=== PATIENT | male | born 1960 | race Caucasian/White ===

== ENCOUNTER 2017-01-23 19:45 | Emergency (ER) | payer MEDICARE ==
[2017-01-23 20:05] LABS: ABSOLUTE BASOPHILS # (AUTO) 0.1 10^3/uL (0.0-0.2); ABSOLUTE EOSINOPHILS # (AUTO) 0.2 10^3/uL (0.0-0.6); ABSOLUTE LYMPHOCYTES (AUTO) 2.2 10^3/uL (0.5-4.7); ABSOLUTE MONOCYTES (AUTO) 0.6 10^3/uL (0.1-1.4); BASOPHILS % (AUTO) 1.4 % (0-2); HEMATOCRIT 36.4 % (37.9-51.0); HEMOGLOBIN 11.9 g/dL (13.5-17.0); HGB HCT DIFFERENCE -0.7; LYMPHOCYTES % (AUTO) 36.8 % (13-45); MEAN CORPUSCULAR HEMOGLOBIN 28.9 pg (27.0-33.4); MEAN CORPUSCULAR HGB CONC 32.6 g/dL (32.0-36.0); MEAN CORPUSCULAR VOLUME 89 fl (80-97); MONOCYTES % (AUTO) 9.4 % (3-13); RED BLOOD COUNT 4.11 10^6/uL (4.35-5.55); RED CELL DISTRIBUTION WIDTH 15.2 % (11.5-14.0); SEGMENTED NEUTROPHILS % (AUTO) 49.4 % (42-78); WHITE BLOOD COUNT 6.1 10^3/uL (4.0-10.5)
[2017-01-23] MEDS ORDERED: TRAMADOL HCL 50 MG TABLET PO ONE (20:09)
[2017-01-23] MEDS ORDERED: OXYCODONE-ACETAMINOPHEN 5-325 MG TABLET PO ONE (20:09)
[2017-01-23] MEDS ORDERED: LORAZEPAM 0.5 MG TABLET PO ONE (20:09)
--- NOTE | 2017-01-23 20:11 | ER Document Report ---
ED Cardiac - General Chief Complaint: Chest Pain Stated Complaint: CHEST PAIN Time Seen by Provider: 01/23/17 19:58 Notes: Patient is a 56-year-old male who comes emergency department for chief complaint of chest pain and body pain in his extremities. Patient states he has a history of chronic pain syndrome, he states he has been out of his tramadol and oxycodone for 3 days, he is trying to get into a new pain management clinic. Patient also has a history of CABG, had a heart cath within the past year, he states he has a follow-up with cardiology tomorrow in [place] for consultation and additional management. He states he thinks he is supposed to get another stent but is not sure. Past medical history of CHF, type 2 diabetes, anxiety (on lorazepam). He denies current chest pain, states he just has body pain. He states the first episode of chest pain this morning happened when he was lifting himself out of bed, he states it is worse with movement and feels like a stabbing in his upper chest. He denies shortness of breath, cough, fever, abdominal pain, nausea/vomiting. - Related Data Allergies/Adverse Reactions: No Known Allergies Allergy (Verified 12/28/13 04:34) Past Medical History - General Information source: Patient - Social History Smoking Status: Former Smoker Frequency of alcohol use: None Drug Abuse: None Lives with: Family Family History: Reviewed & Not Pertinent - Past Medical History Cardiac Medical History: Reports: Hx Congestive Heart Failure, Hx Heart Attack, Hx Hypertension Neurological Medical History: Reports: Hx Cerebrovascular Accident Endocrine Medical History: Reports: Hx Diabetes Mellitus Type 2 GI Medical History: Reports: Hx Ulcer Psychiatric Medical History: Reports: Hx Anxiety Past Surgical History: Reports: Hx Abdominal Surgery - Exploratory laparotomy for perforated ulcer., Hx Cardiac Catheterization, Hx Cardiac Surgery, Hx Coronary Artery Bypass Graft - 3 vessel CABG 1998, Hx Internal Defibrillator - Immunizations Hx Diphtheria, Pertussis, Tetanus Vaccination: Yes Review of Systems - Review of Systems Constitutional: No symptoms reported EENT: No symptoms reported Cardiovascular: See HPI Respiratory: No symptoms reported Gastrointestinal: No symptoms reported Genitourinary: No symptoms reported Male Genitourinary: No symptoms reported Musculoskeletal: See HPI Skin: No symptoms reported Hematologic/Lymphatic: No symptoms reported Neurological/Psychological: No symptoms reported Physical Exam - Vital signs Vitals: Resp 18 01/23/17 19:49 Interpretation: Normal - General General appearance: Appears well, Alert In distress: None - HEENT Head: Normocephalic, Atraumatic Eyes: Normal Pupils: PERRL - Respiratory Respiratory status: No respiratory distress. No: Respiratory distress, Labored Chest status: Tender - tender in left mid to upper chest extending to just under lateral clavicle. Mild. Reproduceable. Mild generalized tenderness over chest otherwise., Other - bypass scar on chest Breath sounds: Normal. No: Decreased air movement, Nonproductive cough, Wheezing Chest palpation: Normal - Cardiovascular Rhythm: Regular. No: Tachycardia Heart sounds: Normal auscultation, S1 appreciated, S2 appreciated Murmur: No - Abdominal Inspection: Normal Distension: No distension Bowel sounds: Normal Tenderness: Nontender Organomegaly: No organomegaly - Back Back: Normal, Nontender - Extremities General upper extremity: Normal inspection, Nontender, Normal color, Normal ROM , Normal temperature General lower extremity: Normal inspection, Nontender, Normal color, Normal ROM , Normal temperature, Normal weight bearing. No: Jose's sign - Neurological Neuro grossly intact: Yes Cognition: Normal Orientation: AAOx4 Scar Coma Scale Eye Opening: Spontaneous Scar Coma Scale Verbal: Oriented [place] Coma Scale Motor: Obeys Commands Scar Coma Scale Total: 15 Speech: Normal Motor strength normal: LUE, RUE, LLE, RLE Sensory: Normal - Psychological Associated symptoms: Normal affect, Normal mood - Skin Skin Temperature: Warm Skin Moisture: Dry Skin Color: Normal Course - Re-evaluation Re-evalutation: Patient is pointing up to his left upper lateral clavicle area as the source of his pain, he has tenderness over this area. Pain worse when lifting himself and moving around. Atypical. Patient given a dose of the meds he is usually taking at home in addition to the aspirin, after this symptoms completely resolved. Shows sinus rhythm,. Initial troponin negative. Workup is suggestive of dehydration with elevated BUN, low bicarbonate, and specific gravity, patient was given a small amount of fluid. Patient resting comfortably. Troponin cycled and negative. Patient states that he already has a follow-up appointment with [facility] cardiology in the morning, he states that he does not want to stay, he states that he wants a referral to pain management, to see his shoe dresser today, and he needs something for pain. He states he responds very well to tramadol but he ran out. Vision states that he is also thinking about going [facility], states he is planning on calling them in the morning and going there instead if he can work it out. He specifically does not want to be admitted to the hospital here. He wants to call a ride. He does not want the [facility] shoe dresser contacted, states he will see them later today if he cannot work out something with [facility] (he currently sees [facility], prefers [facility], has been seen by [facility] before per patient). Because of excellent followup, atypical pain, and negative cardiac workup, patient discharged with return precautions. - Vital Signs Vital signs: Temp Pulse Resp BP Pulse Ox 98 F 84 18 94/65 L 99 01/23/17 19:58 01/23/17 19:58 01/24/17 01:00 01/24/17 00:00 01/24/17 02:00 - Laboratory Result Diagrams: 01/23/17 19:51 01/23/17 19:51 Laboratory results interpreted by me: 01/23/17 01/23/17 01/23/17 19:51 19:51 23:25 RBC 4.11 L Hgb 11.9 L Hct 36.4 L RDW 15.2 H Plt Count 147 L Chloride 111 H Carbon Dioxide 17 L Creatinine 1.36 H Est GFR (Non-Af Amer) 54 L Glucose 147 H AST 16 L Creatine Kinase 51 L Ur Leukocyte Esterase TRACE H Discharge - Discharge Clinical Impression: Whole body pain Chest pain Qualifiers: Chest pain type: unspecified Qualified Code(s): R07.9 - Chest pain, unspecified Condition: Stable Disposition: HOME, SELF-CARE Additional Instructions: Your workup shows some dehydration but no heart abnormalities at this time. Please either go to your appointment today or follow up within the next 1-2 days with cardiology. See pain management referral for close followup. Return to the ED for any concerning or worsening symptoms. Prescriptions: Tramadol HCl [Ultram 50 mg Tablet] 50 mg PO Q6HP PRN #30 tab PRN Reason: Referrals: [facility] [Provider Group] - Follow up tomorrow
[2017-01-23 20:17] LABS: ALANINE AMINOTRANSFERASE 28 U/L (21-72); ALBUMIN 3.9 g/dL (3.5-5.0); ALKALINE PHOSPHATASE 110 U/L (38-126); ANION GAP 12 (5-19); ASPARTATE AMINO TRANSFERASE 16 U/L (17-59); BILIRUBIN,DIRECT 0.4 mg/dL (0.0-0.4); BILIRUBIN,TOTAL 0.5 mg/dL (0.2-1.3); BLOOD UREA NITROGEN 18 mg/dL (7-20); CALCIUM 9.4 mg/dL (8.4-10.2); CARBON DIOXIDE 17 mmol/L (22-30); CHLORIDE 111 mmol/L (98-107); CREATINE KINASE 51 U/L (55-170); CREATININE RESULT 1.36 mg/dL (0.52-1.25); GLUCOSE 147 mg/dL (75-110); POTASSIUM 4.4 mmol/L (3.6-5.0); SODIUM 139.8 mmol/L (137-145); TOTAL PROTEIN 7.3 g/dL (6.3-8.2)
[2017-01-23 20:21] LABS: PROTHROMBIN TIME 12.9 SEC (11.4-15.4)
[2017-01-23 20:29] LABS: CREATINE KINASE MB 1.44 ng/mL (<4.55)
[2017-01-23 20:30] LABS: TROPONIN I < 0.012 ng/mL
--- NOTE | 2017-01-23 20:31 | EKG REPORT ---
SEVERITY:- ABNORMAL ECG - ATRIAL-SENSED VENTRICULAR-PACED COMPLEXES : Confirmed by: Morris Fontana MD 23-Jan-2017 20:30:12
--- NOTE | 2017-01-23 20:54 | RADIOLOGY REPORT (SQ) ---
EXAM DESCRIPTION: CHEST SINGLE VIEW COMPLETED DATE/TIME: 01/23/2017 8:45 pm REASON FOR STUDY: CP COMPARISON: December 2013 EXAM PARAMETERS: NUMBER OF VIEWS: One view. TECHNIQUE: Single frontal radiographic view of the chest acquired. RADIATION DOSE: NA LIMITATIONS: None. FINDINGS: LUNGS AND PLEURA: No opacities, masses or pneumothorax. No pleural effusion. MEDIASTINUM AND HILAR STRUCTURES: No masses. Contour normal. HEART AND VASCULAR STRUCTURES: Cardiac silhouette is at the upper limits of normal in size. BONES: No acute findings. HARDWARE: Patient is status post median sternotomy. AC ID device is identified in position. OTHER: No other significant finding. IMPRESSION: NO ACUTE RADIOGRAPHIC FINDING IN THE CHEST. TECHNICAL DOCUMENTATION: JOB ID: [id number]
[2017-01-23] MEDS ORDERED: NORMAL SALINE 1000 ML 250 ML IV ONE (21:40)
[2017-01-23 23:52] LABS: APPEARANCE,URINE CLEAR; BILIRUBIN,URINE NEGATIVE (NEGATIVE); GLUCOSE, URINE NEGATIVE (NEGATIVE); KETONES,URINE NEGATIVE (NEGATIVE); LEUKOCYTE ESTERASE,URINE TRACE (NEGATIVE); NITRITE,URINE NEGATIVE (NEGATIVE); PROTEIN,URINE NEGATIVE (NEGATIVE); URINE SPECIFIC GRAVITY 1.027; UROBILINOGEN,URINE NEGATIVE mg/dL (<2.0)
[2017-01-24] MEDS ORDERED: HYDROCODONE/ACETAMINOPHEN 5-325 MG 6 TAB/DSPK PO PRN (01:42)
[2017-01-24 04:45] VITALS: BP 117/81
== END 2017-01-24 04:45 | disposition home or self-care (01) ==
LOC: ER 19:45
DX: R07.89 Other chest pain (principal); G89.4 Chronic pain syndrome; T40.4X6A Underdosing of other synthetic narcotics, initial encounter; Z91.14 Patient's other noncompliance with medication regimen; M79.609 Pain in unspecified limb; E11.9 Type 2 diabetes mellitus without complications; F41.9 Anxiety disorder, unspecified; Z95.1 Presence of aortocoronary bypass graft; I25.2 Old myocardial infarction; I10 Essential (primary) hypertension; Z87.891 Personal history of nicotine dependence; Z95.810 Presence of automatic (implantable) cardiac defibrillator; Z79.899 Other long term (current) drug therapy; Z86.73 Personal history of transient ischemic attack (TIA), and cerebral infarction without residual deficits
CPT/HCPCS: 93005; 99285; 36415; 82553; 82550; 85025; 85610; 80053; 81001; 84484; 71010; 93010; A9270 ×4; J7030

== ENCOUNTER 2017-02-12 19:29 | Emergency (ER) | payer MEDICARE ==
[2017-02-12] MEDS ORDERED: OXYCODONE-ACETAMINOPHEN 5-325 MG TABLET PO ONE (20:21)
--- NOTE | 2017-02-12 20:23 | ER Document Report ---
ED General - General Chief Complaint: Short of breath, swelling Stated Complaint: BODY SWELLING,SHORTNESS OF BREATH Time Seen by Provider: 02/12/17 20:12 Notes: Patient is a 56-year-old male that comes emergency department for chief complaint of shortness of breath especially when lying flat since yesterday. He states he feels like he has retained fluid. He does have a history of CHF, CABG, type 2 diabetes, anxiety, and chronic pain syndrome on Lyrica. He denies fever, cough, chest pain, current shortness of breath. TRAVEL OUTSIDE OF THE [place] IN LAST 30 DAYS: No - Related Data Allergies/Adverse Reactions: No Known Allergies Allergy (Verified 12/28/13 04:34) Past Medical History - General Information source: Patient - Social History Smoking Status: Never Smoker Frequency of alcohol use: None Drug Abuse: None Lives with: Family Family History: Reviewed & Not Pertinent - Past Medical History Cardiac Medical History: Reports: Hx Congestive Heart Failure, Hx Heart Attack, Hx Hypertension Neurological Medical History: Reports: Hx Cerebrovascular Accident Endocrine Medical History: Reports: Hx Diabetes Mellitus Type 2 Renal/ Medical History: Denies: Hx Peritoneal Dialysis GI Medical History: Reports: Hx Ulcer Psychiatric Medical History: Reports: Hx Anxiety Past Surgical History: Reports: Hx Abdominal Surgery - Exploratory laparotomy for perforated ulcer., Hx Cardiac Catheterization, Hx Cardiac Surgery, Hx Coronary Artery Bypass Graft - 3 vessel CABG 1998, Hx Internal Defibrillator - Immunizations Hx Diphtheria, Pertussis, Tetanus Vaccination: Yes Review of Systems - Review of Systems Constitutional: See HPI EENT: No symptoms reported Cardiovascular: See HPI Respiratory: See HPI Gastrointestinal: No symptoms reported Genitourinary: No symptoms reported Male Genitourinary: No symptoms reported Musculoskeletal: No symptoms reported Skin: No symptoms reported Hematologic/Lymphatic: No symptoms reported Neurological/Psychological: No symptoms reported Physical Exam - Vital signs Vitals: Temp Pulse Resp BP Pulse Ox 98.4 F 96 20 101/58 L 99 02/12/17 19:41 02/12/17 19:41 02/12/17 19:41 02/12/17 19:41 02/12/17 19:41 Interpretation: Normal - General General appearance: Appears well, Alert, Anxious In distress: None - HEENT Head: Normocephalic, Atraumatic Eyes: Normal Pupils: PERRL - Respiratory Respiratory status: No respiratory distress Chest status: Nontender Breath sounds: Normal Chest palpation: Normal - Cardiovascular Rhythm: Regular. No: Tachycardia Heart sounds: Normal auscultation, S1 appreciated, S2 appreciated Murmur: No - Abdominal Inspection: Normal Distension: No distension Bowel sounds: Normal Tenderness: Nontender. No: Tender, Guarding Organomegaly: No organomegaly - Back Back: Normal, Nontender. No: Tender, CVA tenderness - Extremities General upper extremity: Normal inspection, Nontender, Normal strength, Normal temperature General lower extremity: Normal inspection, Nontender, Normal strength, Normal temperature. 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 He continued to discuss this for a few minutes. He did eventually also tells me that he thinks he is retaining fluid. He is on torsemide. Blood pressure drops slightly low when patient sleeps, improved after awakening. Ambulates without difficulty or symptoms on evaluation. EKG showing atrial paced rhythm. Chest x-ray unremarkable and shows no vascular congestion. Lungs clear on auscultation with no rales. Patient has no lower extremity edema or abdominal fluid. BNP is 4000, however I do not have a comparison, I obtained this to get a baseline for patient in the future. Nonspecific given patient's history. Examination does not show evidence of pulmonary vascular congestion. Discussed this with patient, he is smiling and appreciative, he states that he is very glad to hear this. Patient also states that he would like something for pain in addition to what he is taking, patient will be provided with tramadol, patient states that he has a referral to [facility] from previously and has an appointment next week. He states he will follow-up with this. He states he will return for chest pain, return or worsening shortness of breath, or any other concerning symptoms. Very low suspicion of ACS or PE. Patient asymptomatic at discharge. - Vital Signs Vital signs: Temp Pulse Resp BP Pulse Ox 97.9 F 86 20 101/57 L 99 02/13/17 00:18 02/13/17 00:18 02/13/17 00:18 02/13/17 00:18 02/13/17 00:18 - Laboratory Result Diagrams: 02/12/17 21:40 02/12/17 21:40 Laboratory results interpreted by me: 02/12/17 02/12/17 02/12/17 21:40 21:40 21:40 RBC 3.18 L Hgb 9.6 L Hct 28.2 L RDW 16.0 H Plt Count 131 L Chloride 111 H Glucose 127 H Calcium 8.3 L AST 14 L NT-Pro-B Natriuret Pep 4180 H Total Protein 6.2 L Albumin 3.1 L Discharge - Discharge Clinical Impression: Shortness of breath Condition: Stable Disposition: HOME, SELF-CARE Additional Instructions: Your workup does not show vascular congestion or any concerning acute abnormalities. Take the tramadol along with your current medications if needed for pain, follow -up with your provider for additional management. Return to emergency department for any concerning or worsening symptoms including difficulty breathing, fever, chest pain, or any other concerning symptoms. Prescriptions: Tramadol HCl 50 mg PO ASDIR PRN #20 tablet PRN Reason:
--- NOTE | 2017-02-12 21:12 | RADIOLOGY REPORT (SQ) ---
EXAM DESCRIPTION: CHEST SINGLE VIEW COMPLETED DATE/TIME: 02/12/2017 8:35 pm REASON FOR STUDY: shortness of breath COMPARISON: 01/23/2017 EXAM PARAMETERS: NUMBER OF VIEWS: One view. TECHNIQUE: Single frontal radiographic view of the chest acquired. RADIATION DOSE: NA LIMITATIONS: None. FINDINGS: LUNGS AND PLEURA: No opacities, masses or pneumothorax. No pleural effusion. MEDIASTINUM AND HILAR STRUCTURES: No masses. Contour normal. HEART AND VASCULAR STRUCTURES: Heart normal in size. Normal vasculature. BONES: No acute findings. HARDWARE: Cardiac hardware unchanged. OTHER: No other significant finding. IMPRESSION: NO ACUTE RADIOGRAPHIC FINDING IN THE CHEST. TECHNICAL DOCUMENTATION: JOB ID: [id number]
[2017-02-12 21:55] LABS: ABSOLUTE BASOPHILS # (AUTO) 0.1 10^3/uL (0.0-0.2); ABSOLUTE EOSINOPHILS # (AUTO) 0.3 10^3/uL (0.0-0.6); ABSOLUTE LYMPHOCYTES (AUTO) 2.1 10^3/uL (0.5-4.7); ABSOLUTE MONOCYTES (AUTO) 0.6 10^3/uL (0.1-1.4); ABSOLUTE NEUT (AUTO) 3.3 10^3/uL (1.7-8.2); BASOPHILS % (AUTO) 1.1 % (0-2); EOSINOPHILS % (AUTO) 4.2 % (0-6); HEMATOCRIT 28.2 % (37.9-51.0); HEMOGLOBIN 9.6 g/dL (13.5-17.0); HGB HCT DIFFERENCE 0.6; LYMPHOCYTES % (AUTO) 32.9 % (13-45); MEAN CORPUSCULAR HEMOGLOBIN 30.1 pg (27.0-33.4); MEAN CORPUSCULAR HGB CONC 33.9 g/dL (32.0-36.0); MEAN CORPUSCULAR VOLUME 89 fl (80-97); MONOCYTES % (AUTO) 10.1 % (3-13); RED BLOOD COUNT 3.18 10^6/uL (4.35-5.55); SEGMENTED NEUTROPHILS % (AUTO) 51.7 % (42-78); WHITE BLOOD COUNT 6.3 10^3/uL (4.0-10.5)
[2017-02-12 22:12] LABS: ALANINE AMINOTRANSFERASE 23 U/L (21-72); ALBUMIN 3.1 g/dL (3.5-5.0); ALKALINE PHOSPHATASE 106 U/L (38-126); ANION GAP 6 (5-19); ASPARTATE AMINO TRANSFERASE 14 U/L (17-59); BILIRUBIN,DIRECT 0.3 mg/dL (0.0-0.4); BILIRUBIN,TOTAL 0.3 mg/dL (0.2-1.3); BLOOD UREA NITROGEN 20 mg/dL (7-20); CALCIUM 8.3 mg/dL (8.4-10.2); CARBON DIOXIDE 22 mmol/L (22-30); CHLORIDE 111 mmol/L (98-107); CREATINE KINASE 58 U/L (55-170); CREATININE RESULT 1.21 mg/dL (0.52-1.25); GLUCOSE 127 mg/dL (75-110); POTASSIUM 4.1 mmol/L (3.6-5.0); SODIUM 138.8 mmol/L (137-145); TOTAL PROTEIN 6.2 g/dL (6.3-8.2)
[2017-02-12 22:35] LABS: CREATINE KINASE MB 1.27 ng/mL (<4.55); TROPONIN I < 0.012 ng/mL
[2017-02-12] MEDS ORDERED: HYDROCODONE/ACETAMINOPHEN 5-325 MG 6 TAB/DSPK PO PRN (23:20)
[2017-02-13 00:22] VITALS: BP 101/57
--- NOTE | 2017-02-13 12:52 | EKG REPORT ---
SEVERITY:- ABNORMAL ECG - ATRIAL-SENSED VENTRICULAR-PACED RHYTHM : Confirmed by: Neva Reynolds MD 13-Feb-2017 12:52:00
== END 2017-02-13 00:18 | disposition home or self-care (01) ==
LOC: ER 19:29
DX: I11.0 Hypertensive heart disease with heart failure (principal); I50.9 Heart failure, unspecified; F41.9 Anxiety disorder, unspecified; R06.02 Shortness of breath; E11.9 Type 2 diabetes mellitus without complications; I25.2 Old myocardial infarction; G89.4 Chronic pain syndrome; Z79.891 Long term (current) use of opiate analgesic; Z79.899 Other long term (current) drug therapy; Z95.1 Presence of aortocoronary bypass graft; Z95.810 Presence of automatic (implantable) cardiac defibrillator
CPT/HCPCS: 93005; 99285; 36415; 82553; 82550; 85025; 80053; 84484; 83880; 71010; 93010; A9270 ×2

== ENCOUNTER → 2017-12-03 | Outpatient (CLI) | payer MEDICARE ==
--- NOTE | 2017-12-03 12:21 | RADIOLOGY REPORT (SQ) ---
EXAM DESCRIPTION: CAROTID DOPPLER COMPLETED DATE/TIME: 12/03/2017 12:02 pm REASON FOR STUDY: STENOSIS I65.23 OCCLUSION AND STENOSIS OF BILATERAL CAROTID ARTERIES COMPARISON: MRI brain 12/28/2013 TECHNIQUE: Grayscale ultrasound, Doppler velocity and spectra, and color Doppler images acquired of the extra-cranial carotid and vertebral arteries. Images stored on PACS. LIMITATIONS: None. FINDINGS: RIGHT CAROTID CCA Velocities: Within normal limits. ICA Velocities Peak systolic 0.53 m/s. End diastolic 0.17 m/s. Proximal ICA/CCA peak systolic ratio 1.0. Spectra normal. Minimal mixed calcific and noncalcific plaque at the right carotid bifurcation witho ut proximal ICA flow significant stenosis. LEFT CAROTID CCA Velocities: Within normal limits. ICA Velocities Peak systolic 0.56 m/s. End diastolic 0.23 m/s. Proximal ICA/CCA peak systolic ratio 1.1. Spectra normal. Minimal mixed calcific and noncalcific plaque at the left carotid bifurcation withou t proximal left ICA flow significant stenosis VERTEBRAL ARTERIES: Antegrade flow. Normal waveforms. SUBCLAVIAN ARTERIES: Not evaluated OTHER: No other significant finding. IMPRESSION: NO HEMODYNAMICALLY SIGNIFICANT STENOSIS. COMMENT: Quality ID #[id number]: Velocity criteria are extrapolated from the diameter data as defined by t [place] Society of Radiologists in Ultrasound Consensus Conference. Radiology 2003: 229; 340-346. TECHNICAL DOCUMENTATION: JOB ID: [id number] [employer]- All Rights Reserved Reading location - IP/workstation name: [email or web address]
== END ==
LOC: SP 11:12
PROVIDERS: ATTEND Internal Medicine
DX: I65.23 Occlusion and stenosis of bilateral carotid arteries (principal)
CPT/HCPCS: 93880

== ENCOUNTER → 2018-01-07 | Outpatient (CLI) | payer MEDICARE | LOC: OD 11:37 | PROVIDERS: ATTEND Internal Medicine Nephrology | DX: E11.22 Type 2 diabetes mellitus with diabetic chronic kidney disease (principal); I13.0 Hypertensive heart and chronic kidney disease with heart failure and stage 1 through stage 4 chronic kidney disease, or unspecified chronic kidney disease; N18.3 Chronic kidney disease, stage 3 (moderate); I50.9 Heart failure, unspecified ==

== ENCOUNTER → 2018-01-15 | Outpatient (CLI) | payer MEDICARE ==
[2018-01-15 11:05] LABS: ABSOLUTE BASOPHILS # (AUTO) 0.1 10^3/uL (0.0-0.2); ABSOLUTE EOSINOPHILS # (AUTO) 0.2 10^3/uL (0.0-0.6); ABSOLUTE LYMPHOCYTES (AUTO) 1.7 10^3/uL (0.5-4.7); ABSOLUTE MONOCYTES (AUTO) 0.6 10^3/uL (0.1-1.4); ABSOLUTE NEUT (AUTO) 4.8 10^3/uL (1.7-8.2); BASOPHILS % (AUTO) 1.3 % (0-2); EOSINOPHILS % (AUTO) 2.6 % (0-6); HEMATOCRIT 39.4 % (37.9-51.0); HEMOGLOBIN 12.8 g/dL (13.5-17.0); LYMPHOCYTES % (AUTO) 22.6 % (13-45); MEAN CORPUSCULAR HEMOGLOBIN 26.2 pg (27.0-33.4); MEAN CORPUSCULAR HGB CONC 32.3 g/dL (32.0-36.0); MEAN CORPUSCULAR VOLUME 81 fl (80-97); MONOCYTES % (AUTO) 8.4 % (3-13); PLATELET COUNT 163 10^3/uL (150-450); RED BLOOD COUNT 4.86 10^6/uL (4.35-5.55); RED CELL DISTRIBUTION WIDTH 18.4 % (11.5-14.0); SEGMENTED NEUTROPHILS % (AUTO) 65.1 % (42-78); TOTAL CELLS COUNTED % (AUTO) 100 %; WHITE BLOOD COUNT 7.4 10^3/uL (4.0-10.5)
[2018-01-15 11:21] LABS: APPEARANCE,URINE CLEAR; BILIRUBIN,URINE NEGATIVE (NEGATIVE); COLOR,URINE YELLOW; GLUCOSE, URINE NEGATIVE (NEGATIVE); KETONES,URINE NEGATIVE (NEGATIVE); LEUKOCYTE ESTERASE,URINE NEGATIVE (NEGATIVE); NITRITE,URINE NEGATIVE (NEGATIVE); PROTEIN,URINE NEGATIVE (NEGATIVE); URINE SPECIFIC GRAVITY 1.012; UROBILINOGEN,URINE NEGATIVE mg/dL (<2.0)
[2018-01-15 11:25] LABS: ANION GAP 10 (5-19); BLOOD UREA NITROGEN 28 mg/dL (7-20); CALCIUM 9.3 mg/dL (8.4-10.2); CARBON DIOXIDE 29 mmol/L (22-30); CHLORIDE 104 mmol/L (98-107); GLUCOSE 157 mg/dL (75-110); POTASSIUM 4.9 mmol/L (3.6-5.0); SODIUM 143.4 mmol/L (137-145)
== END ==
LOC: OD 10:06
PROVIDERS: ATTEND Internal Medicine Nephrology
DX: I13.0 Hypertensive heart and chronic kidney disease with heart failure and stage 1 through stage 4 chronic kidney disease, or unspecified chronic kidney disease (principal); N18.3 Chronic kidney disease, stage 3 (moderate); I50.9 Heart failure, unspecified; E11.22 Type 2 diabetes mellitus with diabetic chronic kidney disease
CPT/HCPCS: 36415; 80048; 81001; 82533; 83735; 85025

== ENCOUNTER → 2018-02-15 | Outpatient (CLI) | payer MEDICARE ==
--- NOTE | 2018-02-15 15:17 | RADIOLOGY REPORT (SQ) ---
EXAM DESCRIPTION: CHEST PA/LATERAL COMPLETED DATE/TIME: 02/15/2018 3:02 pm REASON FOR STUDY: ACUTE BRONCHITIS, UNSPECIFIED J20.9 ACUTE BRONCHITIS, UNSPECIFIED COMPARISON: 02/12/2017 NUMBER OF VIEWS: Two view. TECHNIQUE: Frontal and lateral radiographic views of the chest acquired. LIMITATIONS: None. FINDINGS: LUNGS AND PLEURA: Peribronchial cuffing and interstitial changes. Small right pleural eff usion. No consolidation or pneumothorax. MEDIASTINUM AND HILAR STRUCTURES: No masses. No contour abnormalities. HEART AND VASCULAR STRUCTURES: Heart upper limits of normal in size and contour. BONES: No acute findings. HARDWARE: Cardiac defibrillator. CABG. OTHER: No other significant finding. IMPRESSION: Peribronchial cuffing and interstitial changes. Small right pleural effusion. No conso lidation. TECHNICAL DOCUMENTATION: JOB ID: [id number] [place]-72 2010 [employer]- All Rights Reserved Reading location - IP/workstation name: [email or web address]
== END ==
LOC: OD 14:52
PROVIDERS: ATTEND Internal Medicine
DX: J20.9 Acute bronchitis, unspecified (principal)
CPT/HCPCS: 71046

== ENCOUNTER → 2018-04-19 | Outpatient (CLI) | payer MEDICARE ==
[2018-04-19 16:27] LABS: HEMATOCRIT 27.6 % (37.9-51.0); HEMOGLOBIN 9.1 g/dL (13.5-17.0); MEAN CORPUSCULAR HEMOGLOBIN 26.5 pg (27.0-33.4); MEAN CORPUSCULAR HGB CONC 33.1 g/dL (32.0-36.0); MEAN CORPUSCULAR VOLUME 80 fl (80-97); PLATELET COUNT 211 10^3/uL (150-450); RED BLOOD COUNT 3.45 10^6/uL (4.35-5.55); RED CELL DISTRIBUTION WIDTH 17.9 % (11.5-14.0); WHITE BLOOD COUNT 10.7 10^3/uL (4.0-10.5)
[2018-04-19 16:52] LABS: ANION GAP 9 (5-19); BLOOD UREA NITROGEN 59 mg/dL (7-20); CALCIUM 9.1 mg/dL (8.4-10.2); CARBON DIOXIDE 27 mmol/L (22-30); CHLORIDE 99 mmol/L (98-107); GLUCOSE 335 mg/dL (75-110); POTASSIUM 5.6 mmol/L (3.6-5.0)
== END ==
LOC: OD 15:19
PROVIDERS: ATTEND Internal Medicine Nephrology
DX: E11.22 Type 2 diabetes mellitus with diabetic chronic kidney disease (principal); I12.9 Hypertensive chronic kidney disease with stage 1 through stage 4 chronic kidney disease, or unspecified chronic kidney disease; N18.3 Chronic kidney disease, stage 3 (moderate)
CPT/HCPCS: 36415; 80048; 83735; 85027

== ENCOUNTER → 2018-05-02 | Outpatient (CLI) | payer MEDICARE | LOC: OD 11:28 | PROVIDERS: ATTEND Internal Medicine Nephrology | DX: E87.5 Hyperkalemia (principal) | CPT/HCPCS: 36415; 84132 ==

== ENCOUNTER → 2018-06-21 | Outpatient (CLI) | payer MEDICARE ==
[2018-06-21 13:57] LABS: ABSOLUTE BASOPHILS # (AUTO) 0.2 10^3/uL (0.0-0.2); ABSOLUTE EOSINOPHILS # (AUTO) 0.2 10^3/uL (0.0-0.6); ABSOLUTE LYMPHOCYTES (AUTO) 1.4 10^3/uL (0.5-4.7); ABSOLUTE MONOCYTES (AUTO) 0.7 10^3/uL (0.1-1.4); ABSOLUTE NEUT (AUTO) 5.3 10^3/uL (1.7-8.2); BASOPHILS % (AUTO) 2.2 % (0-2); EOSINOPHILS % (AUTO) 2.2 % (0-6); HEMATOCRIT 32.4 % (37.9-51.0); HEMOGLOBIN 10.4 g/dL (13.5-17.0); LYMPHOCYTES % (AUTO) 18.1 % (13-45); MEAN CORPUSCULAR HGB CONC 32.2 g/dL (32.0-36.0); MEAN CORPUSCULAR VOLUME 71 fl (80-97); MONOCYTES % (AUTO) 8.9 % (3-13); PLATELET COUNT 288 10^3/uL (150-450); RED BLOOD COUNT 4.53 10^6/uL (4.35-5.55); RED CELL DISTRIBUTION WIDTH 20.6 % (11.5-14.0); SEGMENTED NEUTROPHILS % (AUTO) 68.6 % (42-78); TOTAL CELLS COUNTED % (AUTO) 100 %; WHITE BLOOD COUNT 7.7 10^3/uL (4.0-10.5)
[2018-06-21 14:23] LABS: ALANINE AMINOTRANSFERASE 16 U/L (21-72); ALBUMIN 4.7 g/dL (3.5-5.0); ALKALINE PHOSPHATASE 123 U/L (38-126); ANION GAP 14 (5-19); ASPARTATE AMINO TRANSFERASE 19 U/L (17-59); BILIRUBIN,DIRECT 0.3 mg/dL (0.0-0.4); BILIRUBIN,TOTAL 0.4 mg/dL (0.2-1.3); BLOOD UREA NITROGEN 31 mg/dL (7-20); CALCIUM 10.1 mg/dL (8.4-10.2); CARBON DIOXIDE 25 mmol/L (22-30); CHLORIDE 102 mmol/L (98-107); CHOLESTEROL 219.64 mg/dL (0-200); GLUCOSE 192 mg/dL (75-110); POTASSIUM 5.6 mmol/L (3.6-5.0); SODIUM 140.5 mmol/L (137-145); TOTAL PROTEIN 8.5 g/dL (6.3-8.2); TRIGLYCERIDES 235 mg/dL (<150)
[2018-06-21 14:34] LABS: DIRECT LDL 149 mg/dL (<100)
[2018-06-21 14:45] LABS: FREE T4 (FREE THYROXINE) 0.72 ng/dL (0.78-2.19)
[2018-06-21 14:59] LABS: THYROID STIMULATING HORMONE 3.72 uIU/mL (0.47-4.68)
[2018-06-22 12:37] LABS: CREATININE URINE 75.5 mg/dL (Not Estab.); MICROALBUMIN URINE 35.1 ug/mL (Not Estab.)
== END ==
LOC: OD 12:32
PROVIDERS: ATTEND Internal Medicine
DX: E11.9 Type 2 diabetes mellitus without complications (principal); I10 Essential (primary) hypertension; E78.2 Mixed hyperlipidemia; E55.9 Vitamin D deficiency, unspecified; Z12.5 Encounter for screening for malignant neoplasm of prostate
CPT/HCPCS: 36415; 80053; 80061; 82043; 82306; 82570; 83036; 84439; 84443; 85025

== ENCOUNTER 2018-12-09 12:17 | Inpatient (IN) | payer MEDICARE ==
[2018-12-09 12:51] LABS: ABSOLUTE BASOPHILS # (AUTO) 0.1 10^3/uL (0.0-0.2); ABSOLUTE EOSINOPHILS # (AUTO) 0.1 10^3/uL (0.0-0.6); ABSOLUTE LYMPHOCYTES (AUTO) 1.4 10^3/uL (0.5-4.7); ABSOLUTE MONOCYTES (AUTO) 0.7 10^3/uL (0.1-1.4); ABSOLUTE NEUT (AUTO) 6.2 10^3/uL (1.7-8.2); BASOPHILS % (AUTO) 0.8 % (0-2); EOSINOPHILS % (AUTO) 1.6 % (0-6); HEMATOCRIT 28.9 % (37.9-51.0); HEMOGLOBIN 8.8 g/dL (13.5-17.0); LYMPHOCYTES % (AUTO) 16.7 % (13-45); MEAN CORPUSCULAR HEMOGLOBIN 20.4 pg (27.0-33.4); MEAN CORPUSCULAR HGB CONC 30.6 g/dL (32.0-36.0); MEAN CORPUSCULAR VOLUME 66 fl (80-97); MONOCYTES % (AUTO) 7.8 % (3-13); PLATELET COUNT 253 10^3/uL (150-450); RED BLOOD COUNT 4.35 10^6/uL (4.35-5.55); RED CELL DISTRIBUTION WIDTH 21.6 % (11.5-14.0); SEGMENTED NEUTROPHILS % (AUTO) 73.1 % (42-78); TOTAL CELLS COUNTED % (AUTO) 100 %; WHITE BLOOD COUNT 8.4 10^3/uL (4.0-10.5)
[2018-12-09 13:17] LABS: ALANINE AMINOTRANSFERASE 17 U/L (21-72); ALKALINE PHOSPHATASE 162 U/L (38-126); ANION GAP 12 (5-19); ASPARTATE AMINO TRANSFERASE 14 U/L (17-59); BILIRUBIN,DIRECT 0.4 mg/dL (0.0-0.4); BILIRUBIN,TOTAL 0.5 mg/dL (0.2-1.3); BLOOD UREA NITROGEN 40 mg/dL (7-20); CALCIUM 8.6 mg/dL (8.4-10.2); CARBON DIOXIDE 24 mmol/L (22-30); CHLORIDE 93 mmol/L (98-107); CREATINE KINASE 54 U/L (55-170); SODIUM 129.1 mmol/L (137-145); TOTAL PROTEIN 7.4 g/dL (6.3-8.2)
[2018-12-09 13:28] LABS: GLUCOSE 436 mg/dL (75-110); POTASSIUM 6.2 mmol/L (3.6-5.0)
[2018-12-09 13:30] LABS: CREATINE KINASE MB 1.54 ng/mL (<4.55)
[2018-12-09] MEDS ORDERED: CALCIUM GLUCONATE 1000 MG/10 ML INJ IV ONE (13:31)
[2018-12-09] MEDS ORDERED: INSULIN REG, HUMAN 100 UNIT/ML 3 ML VIAL (PYX) IV ONE (13:33)
[2018-12-09 13:34] LABS: TROPONIN I 0.02 ng/mL
[2018-12-09 14:25] LABS: APPEARANCE,URINE CLEAR; BILIRUBIN,URINE NEGATIVE (NEGATIVE); COLOR,URINE YELLOW; GLUCOSE, URINE >=500 mg/dL (NEGATIVE); KETONES,URINE NEGATIVE (NEGATIVE); LEUKOCYTE ESTERASE,URINE NEGATIVE (NEGATIVE); NITRITE,URINE NEGATIVE (NEGATIVE); PROTEIN,URINE NEGATIVE (NEGATIVE); URINE SPECIFIC GRAVITY 1.008; UROBILINOGEN,URINE NEGATIVE mg/dL (<2.0)
--- NOTE | 2018-12-09 14:32 | RADIOLOGY REPORT (SQ) ---
EXAM DESCRIPTION: CT HEAD WITHOUT COMPLETED DATE/TIME: 12/09/2018 2:23 pm REASON FOR STUDY: syncope, fall COMPARISON: None. TECHNIQUE: Axial images acquired through the brain without intravenous contrast. Images reviewed wi th bone, brain and subdural windows. Additional sagittal and coronal reconstructions were generated. Images stored on PACS. All CT scanners at this facility use dose modulation, iterative reconstruction, and/or weight based d osing when appropriate to reduce radiation dose to as low as reasonably achievable (ALARA). [facility]: Dose Right [facility]: CareDose [facility]: Dose Right [facility]: Teradose 4D [facility]: MySmartPrice RADIATION DOSE: CT Rad equipment meets quality standard of care and radiation dose reduction techniq ues were employed. CTDIvol: 53.2 mGy. DLP: 1070 mGy-cm. mGy. LIMITATIONS: None. FINDINGS: VENTRICLES: Normal size and contour. CEREBRUM: No masses. No hemorrhage. No midline shift. No evidence for acute infarction. Normal gra y/white matter differentiation. No areas of low density in the white matter. CEREBELLUM: No masses. No hemorrhage. No alteration of density. No evidence for acute infarction. EXTRAAXIAL SPACES: No fluid collections. No masses. ORBITS AND GLOBE: No intra- or extraconal masses. Normal contour of globe without masses. CALVARIUM: No fracture. PARANASAL SINUSES: No fluid or mucosal thickening. SOFT TISSUES: No mass or hematoma. OTHER: No other significant finding. IMPRESSION: NORMAL BRAIN CT WITHOUT CONTRAST. EVIDENCE OF ACUTE STROKE: NO. COMMENT: Quality ID # [id number]: Final reports with documentation of one or more dose reduction techniques (e.g., Automated exposure control, adjustment of the mA and/or kV according to patient size, use of iterative reconstruction technique) TECHNICAL DOCUMENTATION: JOB ID: [id number] [employer]- All Rights Reserved Reading location - IP/workstation name: [email or web address]
--- NOTE | 2018-12-09 14:33 | ER Document Report ---
ED General - General Chief Complaint: Syncope Stated Complaint: SYNCOPE Time Seen by Provider: 12/09/18 13:42 Primary Care Provider: AJVAD MART MD [Primary Care Provider] - Follow up as needed TRAVEL OUTSIDE OF THE [place] IN LAST 30 DAYS: No - HPI Notes: Patient is a 58-year-old male who presents to the emergency department after a syncopal episode. He was getting up, walking to the bathroom to urinate. He states the next thing he knew he was on the floor. He is unsure as to whether or not he hit his head. He denies any pain at this time. He states his tetanus is up-to-date, last received approximately 8 months ago. He denies any nausea or vomiting. He states his been taking his medications as prescribed. No visual changes. - Related Data Allergies/Adverse Reactions: No Known Allergies Allergy (Verified 12/28/13 04:34) Past Medical History - General Information source: Patient - Social History Smoking Status: Current Every Day Smoker Frequency of alcohol use: None Drug Abuse: None Family History: Reviewed & Not Pertinent Patient has suicidal ideation: No Patient has homicidal ideation: No - Past Medical History Cardiac Medical History: Reports: Hx Congestive Heart Failure, Hx Heart Attack, Hx Hypertension Neurological Medical History: Reports: Hx Cerebrovascular Accident Endocrine Medical History: Reports: Hx Diabetes Mellitus Type 2 Renal/ Medical History: Denies: Hx Peritoneal Dialysis GI Medical History: Reports: Hx Ulcer Psychiatric Medical History: Reports: Hx Anxiety Past Surgical History: Reports: Hx Abdominal Surgery - Exploratory laparotomy for perforated ulcer., Hx Cardiac Catheterization, Hx Cardiac Surgery, Hx Coronary Artery Bypass Graft - 3 vessel CABG 1998, Hx Internal Defibrillator - Immunizations Hx Diphtheria, Pertussis, Tetanus Vaccination: Yes Review of Systems - Review of Systems Constitutional: No symptoms reported EENT: No symptoms reported Cardiovascular: See HPI Respiratory: No symptoms reported Gastrointestinal: No symptoms reported Genitourinary: No symptoms reported Musculoskeletal: No symptoms reported Skin: No symptoms reported Neurological/Psychological: No symptoms reported Physical Exam - Vital signs Vitals: Temp Resp BP Pulse Ox 98.5 F 22 H 101/76 98 12/09/18 12:28 12/09/18 12:28 12/09/18 12:28 12/09/18 12:28 - Notes Notes: Patient is a 58-year-old gentleman, appears older than his stated age in no acute distress. Head is normocephalic and appears atraumatic. Pupils are equal, round, reactive to light. Oral mucosa is moist. Heart is regular rate and rhythm, lungs are clear to auscultation bilaterally. Abdomen soft, nontender, normoactive bowel sounds. Skin is warm and dry. He has 2 skin tears noted to the left proximal ulnar aspect of the forearm and the left ulnar aspect of the hand. No foreign body. Neurovascularly intact distally. Extremities without cyanosis or clubbing. Patient is drowsy but alert and oriented x3. Cranial nerves II through XII are grossly intact without focal neurological deficits. Strength is +5-5 bilateral lower extremities. Sensation is intact. Intact [id number], rapid altering movements, [id number]. Course - Re-evaluation Re-evalutation: 12/09/18 14:32 Patient presents emergency department for evaluation. I was notified by nursing that the patient had not yet been seen by a physician, but his laboratory investigations did include multiple critical results. His blood glucose is markedly elevated. His potassium is markedly elevated. He was treated with calcium and insulin. He remained on the monitor remained stable. Because of his syncopal episode CT scan of the head was ordered. Official read is pending but no obvious or acute bleed is noted. Patient will be treated with Kayexalate, will admit him for further care. Awaiting phone call from hospitalist. 12/09/18 14:[address] Graham who accepted the patient. He asked that I speak with Supriya Bowen, who accepted - Vital Signs Vital signs: Temp Pulse Resp BP Pulse Ox 98.5 F 18 106/75 98 12/09/18 12:28 12/09/18 14:31 12/09/18 14:31 12/09/18 14:29 - Laboratory Result Diagrams: 12/09/18 12:33 12/09/18 12:33 Laboratory results interpreted by me: 12/09/18 12/09/18 12/09/18 12:33 12:33 12:43 Hgb 8.8 L Hct 28.9 L MCV 66 L MCH 20.4 L MCHC 30.6 L RDW 21.6 H Sodium 129.1 L Potassium 6.2 H* Chloride 93 L BUN 40 H Creatinine 1.76 H Est GFR ( Amer) 49 L Est GFR (Non-Af Amer) 40 L Glucose 436 H* POC Glucose 454 H* AST 14 L ALT 17 L Alkaline Phosphatase 162 H Creatine Kinase 54 L Urine Glucose (UA) 12/09/18 13:50 Hgb Hct MCV MCH MCHC RDW Sodium Potassium Chloride BUN Creatinine Est GFR ( Amer) Est GFR (Non-Af Amer) Glucose POC Glucose AST ALT Alkaline Phosphatase Creatine Kinase Urine Glucose (UA) >=500 H Discharge - Discharge Clinical Impression: Syncope and collapse, Hyperkalemia, Hyperglycemia Condition: Stable Disposition: ADMITTED INPATIENT Admitting Provider: Gladys (Hospitalist) - GISSEL Bowen accepting Unit Admitted: [facility] Referrals: JAVAD MART MD [Primary Care Provider] - Follow up as needed
[2018-12-09] MEDS ORDERED: SODIUM POLYSTYRENE SULFONATE 15 GM/60 ML PO ONE (14:42)
[2018-12-09] MEDS ORDERED: ONDANSETRON 4 MG TAB.RAPDIS PO PRN (16:01)
[2018-12-09] MEDS ORDERED: ACETAMINOPHEN 325 MG TABLET PO PRN (16:01)
[2018-12-09] MEDS ORDERED: DEXTROSE 50%-WATER 25 GM/50 ML DISP.SYRIN IV PRN ×2 (16:24)
[2018-12-09] MEDS ORDERED: GLUCAGON,HUMAN RECOMB 1 MG INJ IM PRN (16:24)
[2018-12-09] MEDS ORDERED: DEXTROSE 40% GEL 15 GM TUBE PO PRN ×2 (16:24)
[2018-12-09] MEDS: OXYCODONE-ACETAMINOPHEN 5-325 MG TABLET PO PRN ×2 (16:30→21:58)
[2018-12-09 18:15] LABS: ANION GAP 12 (5-19); BLOOD UREA NITROGEN 41 mg/dL (7-20); CALCIUM 9.6 mg/dL (8.4-10.2); CARBON DIOXIDE 25 mmol/L (22-30); CHLORIDE 96 mmol/L (98-107); GLUCOSE 160 mg/dL (75-110); POTASSIUM 5.8 mmol/L (3.6-5.0); SODIUM 132.9 mmol/L (137-145)
[2018-12-09 18:23] LABS: CREATINE KINASE MB 1.72 ng/mL (<4.55); TROPONIN I 0.035 ng/mL
--- NOTE | 2018-12-09 19:32 | RADIOLOGY REPORT (SQ) ---
EXAM DESCRIPTION: CTA HEAD COMPLETED DATE/TIME: 12/09/2018 5:51 pm REASON FOR STUDY: syncope COMPARISON: None. TECHNIQUE: Post IV contrast scanning, thin section axial imaging through the brain to evaluate the a rterial structures. Source and MIP images are saved and reviewed on PACS. Advanced 3D imaging as volume-rendering, MIPs, SSD performed? yes All CT scanners at this facility use dose modulation, iterative reconstruction, and/or weight based d osing when appropriate to reduce radiation dose to as low as reasonably achievable (ALARA). [facility]: Dose Right [facility]: CareDose [facility]: Dose Right [facility]: Teradose 4D [facility]: Rent The Dress CONTRAST TYPE AND DOSE: contrast/concentration: Isovue 300.00 mg/ml; Total Contrast Delivered: 70.0 ml; Total Saline Delivered: 75.0 ml RENAL FUNCTION: BUN 40 creatinine 1.76 LIMITATIONS: None. FINDINGS: [place]: The anterior, middle, posterior cerebral arteries are all patent. No ev idence of aneurysm or focal stenosis. POSTERIOR CIRCULATION: Cannot exclude distal occlusion of the left vertebral artery BRAIN: No gross enhancing lesions as visualized. The superior cerebral hemispheres are not included in the field of view. BONES: Intact as visualized. SINUSES: No fluid or mucosal thickening. OTHER: No other significant finding. IMPRESSION: No evidence of stenosis or aneurysm of the [place]. Cannot exclude occlusion o f the distal left cerebral artery. TECHNICAL DOCUMENTATION: JOB ID: [id number] Quality ID # [id number]: Final reports with documentation of one or more dose reduction techniques (e.g., Au tomated exposure control, adjustment of the mA and/or kV according to patient size, use of iterative reconstruction technique) 2010 [employer]- All Rights Reserved Reading location - IP/workstation name: [email or web address]
[2018-12-09] MEDS: TORSEMIDE 20 MG TABLET PO SCH (19:55)
[2018-12-09] MEDS: INSULIN LISPRO 100 UNIT/ML 3 ML VIAL SUBCUT SCH (21:54)
[2018-12-09] MEDS: BUSPIRONE HCL 10 MG TABLET PO SCH (21:54)
[2018-12-09] MEDS: FAMOTIDINE 20 MG TABLET PO SCH (21:54)
[2018-12-09] MEDS: ATORVASTATIN CALCIUM 20 MG TABLET PO SCH (22:01)
--- NOTE | 2018-12-09 22:03 | PDOC H&P ---
History of Present Illness Admission Date/PCP: 12/09/18 14:52 JAVAD MART Patient complains of: syncope History of Present Illness: Patient is a 58-year-old male with a PMH of CVA, NV x 2-3 with stents (unsure how many), 3 vessel CABG, pacemaker, CAD, CKD, HTN, TJ, PUD. He presents to the emergency department after a syncopal episode. He was getting up to go to the bathroom. He states the next thing he knew he was on the floor. He is unsure as to whether or not he hit his head. States his aunt called EMS. Upon arrival to the ED, head CT was negative. EKG shows paced rhythm. Laboratory studies show HYPOnatremia (Na 129), hyperkalemia (K 6.2), hyperglycemia (BG 433), and CKD III. The patient admits that he is noncompliant with his medical treatment. Does not check is BG at home. Was supposed to follow up with time signal wirer regarding CKD but never did. Has not seen a road design draftsperson in quite some time. The patient endorses mild R sided weakness. Is unable to tell me if he has residual deficits from his previous stroke. Denies parasthesia or pain. Endorses feeling lightheaded and dizzy. Denies visual deficits. On exam, there is mild R tongue deviation. Difficult to discern R sided weakness. +systolic murmur. Pulses are palpable in all extremities. Mild peripheral edema in lower extremities. Abdomen is S/NT/ND. Plan to admit to hospitalist service for syncope workup. Past Medical History Cardiac Medical History: Reports: Congestive Heart Failure, Myocardial Infarction, Hypertension Endocrine Medical History: Reports: Diabetes Mellitus Type 2 Past Surgical History Past Surgical History: Reports: Cardiac Catheterization, Coronary Artery Bypass Graft - 3 vessel CABG 1998, Internal Defibrillator Social History Information Source: Patient Lives with: Family Smoking Status: Current Every Day Smoker Cigarettes Packs Per Day: 1 Number of Years Smokin Frequency of Alcohol Use: None Hx Recreational Drug Use: No Drugs: None Hx Prescription Drug Abuse: No - Advance Directive Resuscitation Status: Full Code Family History Family History: Reviewed & Not Pertinent Parental Family History Reviewed: Yes Children Family History Reviewed: Yes Sibling(s) Family History Reviewed.: Yes Medication/Allergy Home Medications: Buspirone HCl [Buspar 10 mg Tablet] 10 mg PO Q12 12/09/18 Duloxetine HCl [Cymbalta 30 mg Capsule.dr] 60 mg PO DAILY 12/09/18 Omeprazole 20 mg PO DAILY 12/09/18 Oxycodone HCl/Acetaminophen [Oxycodone-Acetaminophen 10-325] 1 each PO Q8HP PRN 12/09/18 Potassium Chloride [Klor-Con 10 Meq Capsule ER] 10 meq PO DAILY 12/09/18 Sertraline HCl [Zoloft 50 mg Tablet] 50 mg PO DAILY 12/09/18 Torsemide [Demadex 20 mg Tablet] 40 mg PO Q12 12/09/18 Allergies/Adverse Reactions: No Known Allergies Allergy (Verified 12/28/13 04:34) Physical Exam Vital Signs: Temp Pulse Resp BP Pulse Ox 97.4 F 61 20 93/60 L 98 12/09/18 19:40 12/09/18 20:00 12/09/18 20:00 12/09/18 20:00 12/09/18 20:00 General appearance: PRESENT: morbidly obese Eye exam: PRESENT: conjunctiva pink, PERRLA Mouth exam: PRESENT: other - slight R deviation of the tongue Teeth exam: PRESENT: poor dentation Neck exam: PRESENT: full ROM Respiratory exam: PRESENT: clear to auscultation neena, symmetrical, unlabored Cardiovascular exam: PRESENT: RRR Pulses: PRESENT: normal radial pulses, +1 pedal pulses bilateral Vascular exam: PRESENT: normal capillary refill GI/Abdominal exam: PRESENT: normal bowel sounds, soft, other - obese Rectal exam: PRESENT: deferred Extremities exam: PRESENT: full ROM, pedal edema Musculoskeletal exam: PRESENT: ambulatory, full ROM Neurological exam: PRESENT: alert, awake, oriented to person, oriented to place, oriented to time, oriented to situation Psychiatric exam: PRESENT: appropriate affect Skin exam: PRESENT: dry, intact Results Laboratory Results: 12/09/18 12:33 12/09/18 17:25 12/09/18 12/09/18 12/09/18 12:33 12:33 13:50 WBC 8.4 RBC 4.35 Hgb 8.8 L Hct 28.9 L MCV 66 L MCH 20.4 L MCHC 30.6 L RDW 21.6 H Plt Count 253 Seg Neutrophils % 73.1 Lymphocytes % 16.7 Monocytes % 7.8 Eosinophils % 1.6 Basophils % 0.8 Absolute Neutrophils 6.2 Absolute Lymphocytes 1.4 Absolute Monocytes 0.7 Absolute Eosinophils 0.1 Absolute Basophils 0.1 Sodium 129.1 L Potassium 6.2 H* Chloride 93 L Carbon Dioxide 24 Anion Gap 12 BUN 40 H Creatinine 1.76 H Est GFR ( Amer) 49 L Est GFR (Non-Af Amer) 40 L Glucose 436 H* Calcium 8.6 Total Bilirubin 0.5 AST 14 L ALT 17 L Alkaline Phosphatase 162 H Total Protein 7.4 Albumin 4.0 Urine Color YELLOW Urine Appearance CLEAR Urine pH 6.0 Ur Specific [place] 1.008 Urine Protein NEGATIVE Urine Glucose (UA) >=500 H Urine Ketones NEGATIVE Urine Blood NEGATIVE Urine Nitrite NEGATIVE Ur Leukocyte Esterase NEGATIVE Urine WBC (Auto) 0 Urine RBC (Auto) 1 12/09/18 17:25 WBC RBC Hgb Hct MCV MCH MCHC RDW Plt Count Seg Neutrophils % Lymphocytes % Monocytes % Eosinophils % Basophils % Absolute Neutrophils Absolute Lymphocytes Absolute Monocytes Absolute Eosinophils Absolute Basophils Sodium 132.9 L Potassium 5.8 H Chloride 96 L Carbon Dioxide 25 Anion Gap 12 BUN 41 H Creatinine 1.64 H Est GFR ( Amer) 53 L Est GFR (Non-Af Amer) 44 L Glucose 160 H Calcium 9.6 Total Bilirubin AST ALT Alkaline Phosphatase Total Protein Albumin Urine Color Urine Appearance Urine pH Ur Specific [place] Urine Protein Urine Glucose (UA) Urine Ketones Urine Blood Urine Nitrite Ur Leukocyte Esterase Urine WBC (Auto) Urine RBC (Auto) 12/09/18 12/09/18 12/09/18 12:33 12:33 17:25 Creatine Kinase 54 L 69 CK-MB (CK-2) 1.54 Troponin I 0.020 12/09/18 17:25 Creatine Kinase CK-MB (CK-2) 1.72 Troponin I 0.035 Impressions: Head CT 12/09/18 13:39 IMPRESSION: NORMAL BRAIN CT WITHOUT CONTRAST. EVIDENCE OF ACUTE STROKE: NO. Head CTA 12/09/18 16:22 IMPRESSION: No evidence of stenosis or aneurysm of the [place]. Cannot exclude occlusion of the distal left cerebral artery. Status: Imported from PACS Assessment and Plan - Diagnosis (1) Syncope and collapse Is this a current diagnosis for this admission?: Yes Plan: unclear etiology at this time arrythmia vs hypovolemia vs carotid stenosis vs cva patient endorses R sided weakness that he states is new CT head negative (-) Plan for CTA head and carotid doppler to complete syncope workup (2) Weakness Is this a current diagnosis for this admission?: Yes Plan: Poor state of health due to noncompliance Manage diabetes with insulin Blood pressure with anti-HTN Consult Dr. Sesay regarding the patient's CKD if creatinine/GFR gets worse CPAP QHS for TJ Serial chemistries to monitor electrolytes Hgb A1c to look at diabetes management over last 3 months (3) Hyperglycemia Is this a current diagnosis for this admission?: Yes Plan: stemming from noncompliance patient admits he does not check BG at home no insulin gtt at this time treat with SC humalog - sliding scale ACHS HgbA1C in AM consult ems educator (4) Hyperkalemia Is this a current diagnosis for this admission?: Yes Plan: likely secondary to kidney disease treated with insulin, kayexalate and calcium gluconate (5) CAD (coronary artery disease) Is this a current diagnosis for this admission?: Yes Plan: History of CAD Continue home dose ASA (6) CHF (congestive heart failure) Is this a current diagnosis for this admission?: Yes Plan: history of CHF - 3 vessel CABG, CAD, NV x 2-3, now with chronic congestive heart failure admit to [facility] telemetry monitoring possible that patient suffered arrythmia causing his syncope may need to intererrogate pacemaker continue home dose antihypertensives PRN hydralazine and lopressor (7) Arthritis Is this a current diagnosis for this admission?: Yes Plan: PMH arthritis in the hips Continue home dose percocetfor pain - Time Time Spent with patient: 15-24 minutes Medications reviewed and adjusted accordingly: Yes Anticipated discharge: Home Within: within 72 hours - Inpatient Certification Based on my medical assessment, after consideration of the patient's comorbidities, presenting symptoms, or acuity I expect that the services needed warrant INPATIENT care.: Yes I certify that my determination is in accordance with my understanding of Medicare's requirements for reasonable and necessary INPATIENT services [42 CFR 412.3e].: Yes Medical Necessity: Risk of Complication if Not Cared For in Hospital - Plan Summary Plan Summary: UNABLE TO GET MRI DUE TO PACEMAKER. PLAN FOR CTA HEAD AND CAROTID DOPPLER. ADMIT TO [facility] FOR SERIAL MENDS EXAMS.
[2018-12-09 22:09] LABS: CREATINE KINASE MB 1.49 ng/mL (<4.55); TROPONIN I 0.027 ng/mL
[2018-12-10 04:53] LABS: HEMATOCRIT 27.7 % (37.9-51.0); HEMOGLOBIN 8.5 g/dL (13.5-17.0); MEAN CORPUSCULAR HEMOGLOBIN 20.2 pg (27.0-33.4); MEAN CORPUSCULAR HGB CONC 30.8 g/dL (32.0-36.0); MEAN CORPUSCULAR VOLUME 66 fl (80-97); PLATELET COUNT 251 10^3/uL (150-450); RED BLOOD COUNT 4.22 10^6/uL (4.35-5.55); RED CELL DISTRIBUTION WIDTH 21.3 % (11.5-14.0); WHITE BLOOD COUNT 6.5 10^3/uL (4.0-10.5)
[2018-12-10 05:20] LABS: ALANINE AMINOTRANSFERASE 18 U/L (21-72); ALBUMIN 3.7 g/dL (3.5-5.0); ALKALINE PHOSPHATASE 146 U/L (38-126); ANION GAP 8 (5-19); ASPARTATE AMINO TRANSFERASE 15 U/L (17-59); BILIRUBIN,DIRECT 0.3 mg/dL (0.0-0.4); BILIRUBIN,TOTAL 0.5 mg/dL (0.2-1.3); BLOOD UREA NITROGEN 40 mg/dL (7-20); CALCIUM 8.7 mg/dL (8.4-10.2); CARBON DIOXIDE 29 mmol/L (22-30); CHLORIDE 99 mmol/L (98-107); CHOLESTEROL 193.26 mg/dL (0-200); CREATINE KINASE 77 U/L (55-170); GLUCOSE 130 mg/dL (75-110); SODIUM 135.7 mmol/L (137-145); TOTAL PROTEIN 7.4 g/dL (6.3-8.2); TRIGLYCERIDES 129 mg/dL (<150)
[2018-12-10] MEDS: PANTOPRAZOLE SODIUM 20 MG TABLET.DR PO SCH (05:24)
[2018-12-10 05:28] LABS: CREATINE KINASE MB 1.32 ng/mL (<4.55); TROPONIN I 0.023 ng/mL
[2018-12-10 05:30] LABS: DIRECT LDL 141 mg/dL (<100)
[2018-12-10 05:43] LABS: POTASSIUM 4.6 mmol/L (3.6-5.0)
--- NOTE | 2018-12-10 08:22 | RADIOLOGY REPORT (SQ) ---
EXAM DESCRIPTION: CAROTID DOPPLER COMPLETED DATE/TIME: 12/09/2018 7:18 pm REASON FOR STUDY: syncope COMPARISON: 12/03/2017. TECHNIQUE: Grayscale ultrasound, Doppler velocity and spectra, and color Doppler images acquired of the extra-cranial carotid and vertebral arteries. Images stored on PACS. LIMITATIONS: None. FINDINGS: RIGHT CAROTID CCA Velocities: Within normal limits. ICA Velocities Peak systolic 0.66 m/s. End diastolic 0.21 m/s. Proximal ICA/CCA peak systolic ratio 0.9. Soft plaque. LEFT CAROTID CCA Velocities: Within normal limits. ICA Velocities Peak systolic 1.13 m/s. End diastolic 0.43 m/s. Proximal ICA/CCA peak systolic ratio 1.5. Soft plaque. VERTEBRAL ARTERIES: Antegrade flow. Normal waveforms. SUBCLAVIAN ARTERIES: No finding. OTHER: No other significant finding. IMPRESSION: NO HEMODYNAMICALLY SIGNIFICANT STENOSIS. COMMENT: Quality ID #[id number]: Velocity criteria are extrapolated from the diameter data as defined by t he Society of Radiologists in Ultrasound Consensus Conference. Radiology 2003: 229; 340-346. TECHNICAL DOCUMENTATION: JOB ID: [id number] [employer]- All Rights Reserved Reading location - IP/workstation name: [email or web address]
[2018-12-10] MEDS: INSULIN LISPRO 100 UNIT/ML 3 ML VIAL SUBCUT SCH ×4 (08:54→21:13)
[2018-12-10] MEDS: FAMOTIDINE 20 MG TABLET PO SCH ×2 (09:12→21:17)
[2018-12-10] MEDS: ENOXAPARIN SODIUM INJ 30 MG/0.3 ML DISP.SYRIN SUBCUT SCH (09:12)
[2018-12-10] MEDS: ASPIRIN 81 MG TABLET, ENT COATED PO SCH (09:12)
[2018-12-10] MEDS: BUSPIRONE HCL 10 MG TABLET PO SCH ×2 (09:12→21:17)
[2018-12-10] MEDS: DULOXETINE HCL 30 MG CAPSULE.DR PO SCH (09:12)
[2018-12-10] MEDS: SERTRALINE HCL 50 MG TABLET PO SCH (09:12)
[2018-12-10] MEDS: TORSEMIDE 20 MG TABLET PO SCH ×2 (09:13→17:30)
[2018-12-10] MEDS: OXYCODONE-ACETAMINOPHEN 5-325 MG TABLET PO PRN ×3 (09:20→23:48)
--- NOTE | 2018-12-10 19:58 | PDOC PROGRESS REPORT ---
Subjective Progress Note for:: 12/10/18 Subjective:: Patient is a 58-year-old male with a PMH of CVA, CT x 2-3 with stents (unsure how many), 3 vessel CABG, pacemaker, CAD, CKD, HTN, TJ, PUD. He presents to the emergency department after a syncopal episode. Patient was seen on afternoon rounds. He was found resting in bed comfortably on room air. He reports that he is feeling well and has not had further episodes of dizziness, syncope/near syncope. Patient reports that he is "willing to do whatever it takes" and "treat my sugar more seriously," as the syncopal episode has "scared me straight." However, nursing uses this opportunity to discuss with him his choice to ambulate to the vending machine and drink a bottle of Mountain Dew. He states that he hopes to be discharged home today, but is agreeable to stay after explaining that I wish to evaluate his CHF and to ask nephrology to meet him as he has never been formally evaluated for his CKD. He denies fever, chills, chest pain, palpitations, dyspnea, orthopnea, abdominal pain, nausea vomiting, and diarrhea. He has no questions or concerns at this time. Reason For Visit: SYNCOPE Physical Exam Vital Signs: Temp Pulse Resp BP Pulse Ox 98.9 F 74 20 108/74 100 12/10/18 19:45 12/10/18 19:45 12/10/18 19:45 12/10/18 19:45 12/10/18 19:45 Intake & Output 12/09/18 12/10/18 12/11/18 06:59 06:59 06:59 Intake Total 340 850 Balance 340 850 Weight 84.2 kg General appearance: PRESENT: no acute distress, morbidly obese, well-developed, well-nourished Head exam: PRESENT: atraumatic, normocephalic Eye exam: PRESENT: conjunctiva pink, EOMI, PERRLA. ABSENT: scleral icterus Ear exam: PRESENT: normal external ear exam Mouth exam: PRESENT: moist, tongue midline Teeth exam: PRESENT: poor dentation Neck exam: ABSENT: carotid bruit, JVD, lymphadenopathy, thyromegaly Respiratory exam: PRESENT: clear to auscultation neena, symmetrical, unlabored. ABSENT: rales, rhonchi, wheezes Cardiovascular exam: PRESENT: RRR, +S1, +S2. ABSENT: diastolic murmur, rubs, systolic murmur Pulses: PRESENT: normal dorsalis pedis pul Vascular exam: PRESENT: normal capillary refill GI/Abdominal exam: PRESENT: normal bowel sounds, soft. ABSENT: distended, guarding, mass, organolmegaly, rebound, tenderness Rectal exam: PRESENT: deferred Extremities exam: PRESENT: full ROM. ABSENT: calf tenderness, clubbing, pedal edema Musculoskeletal exam: PRESENT: ambulatory Neurological exam: PRESENT: alert, awake, oriented to person, oriented to place, oriented to time, oriented to situation, CN II-XII grossly intact. ABSENT: motor sensory deficit Psychiatric exam: PRESENT: appropriate affect, normal mood. ABSENT: homicidal ideation, suicidal ideation Skin exam: PRESENT: dry, intact, warm. ABSENT: cyanosis, rash Results Laboratory Results: 12/10/18 04:30 12/10/18 04:30 12/10/18 12/10/18 12/10/18 04:30 04:30 04:30 WBC 6.5 RBC 4.22 L Hgb 8.5 L Hct 27.7 L MCV 66 L MCH 20.2 L MCHC 30.8 L RDW 21.3 H Plt Count 251 Sodium 135.7 L Potassium 4.6 D Chloride 99 Carbon Dioxide 29 Anion Gap 8 BUN 40 H Creatinine 1.69 H Est GFR ( Amer) 51 L Est GFR (Non-Af Amer) 42 L Glucose 130 H Calcium 8.7 Phosphorus 4.0 Magnesium 2.7 H Total Bilirubin 0.5 AST 15 L ALT 18 L Alkaline Phosphatase 146 H Total Protein 7.4 Albumin 3.7 Triglycerides 129 Cholesterol 193.26 LDL Cholesterol Direct 141 H VLDL Cholesterol 26.0 HDL Cholesterol 34 L TSH 1.45 12/09/18 12/09/18 12/09/18 12:33 12:33 17:25 Creatine Kinase 54 L 69 CK-MB (CK-2) 1.54 Troponin I 0.020 NT-Pro-B Natriuret Pep 12/09/18 12/09/18 12/09/18 17:25 21:30 21:30 Creatine Kinase 72 CK-MB (CK-2) 1.72 1.49 Troponin I 0.035 0.027 NT-Pro-B Natriuret Pep 12/10/18 12/10/18 04:30 04:30 Creatine Kinase 77 CK-MB (CK-2) 1.32 Troponin I 0.023 NT-Pro-B Natriuret Pep 7840 H Impressions: Head CT 12/09/18 13:39 IMPRESSION: NORMAL BRAIN CT WITHOUT CONTRAST. EVIDENCE OF ACUTE STROKE: NO. Head CTA 12/09/18 16:22 IMPRESSION: No evidence of stenosis or aneurysm of the [place]. Cannot exclude occlusion of the distal left cerebral artery. Carotid Doppler Study 12/09/18 16:24 IMPRESSION: NO HEMODYNAMICALLY SIGNIFICANT STENOSIS. Assessment and Plan - Diagnosis (1) Syncope and collapse Is this a current diagnosis for this admission?: Yes Plan: Unclear etiology at this time arrythmia vs hypovolemia vs carotid stenosis vs cva CT head negative (-) CTA head was benign though could not exclude occlusion of the left distal vertibral artery. Carotid doppler was negative for hemodynamically significant stenosis. Will interrogate pacemaker. Echocardiogram is pending. Unlikely to have been a hypoglycemic event given that the patient does not take diabetic medications. Not a candidate for MRI as he has a Pacemaker/AICD; Rt sided weakness has resolved. ?TIA TSH is nml Random cortisol is nml; will check AM level Orthostatic vital signs are negative. Continue fall precautions. (2) CAD (coronary artery disease) Is this a current diagnosis for this admission?: Yes Plan: History of CAD Continue home dose ASA and atorvastatin Cardiac diet (3) CHF (congestive heart failure) Is this a current diagnosis for this admission?: Yes Plan: history of CHF - 3 vessel CABG, CAD, CT x 2-3, now with chronic congestive heart failure proBNP is elevated to 7k Admit to [facility] for telemetry monitoring Possible that patient suffered arrythmia causing his syncope; will to interrogate pacemaker Update echocardiogram; exam completed, formal report pending. Continue home dose torsemide. This appears to be his only home medication; will need to start on low dose betablocker and consider lisinopril pending nephrology's approval. Start carvedilol 3.15 mg twice daily (secondary to HYPOtension) PRN hydralazine and lopressor Will discuss with patient (? established clerical assistant); will need close follow up post discharge Cardiac diet. Strict I&Os and daily weights. breaker operator and patient educator are consulted. (4) Hyperglycemia Is this a current diagnosis for this admission?: Yes Plan: A1C 11.7% Stemming from noncompliance; patient admits he does not check BG at home treat with SC humalog - sliding scale ACHS consult community educator and advanced registered nurse Patient would benefit from starting long-acting insulin; question patient's compliance w/ self administered insulin. Will discuss tomorrow to determine appropriateness of Rx at this time. It does not appear that he is on an anti-diabetic regiment at home; at minimum will d/c with metformin. (5) Hyperkalemia Is this a current diagnosis for this admission?: Yes Plan: Resolved. likely secondary to kidney disease treated with insulin, kayexalate and calcium gluconate Will monitor daily chemistries. Nephrology is consulted. (6) Weakness Is this a current diagnosis for this admission?: Yes Plan: Poor state of health due to noncompliance Evaluation and management as above. Patient reports Rt side weakness has resolved. Independently ambulated to the length of the floor today without difficulty. (7) Arthritis Is this a current diagnosis for this admission?: Yes Plan: H arthritis in the hips Continue home dose percocet for pain - Time Time Spent with patient: 25-34 minutes Medications reviewed and adjusted accordingly: Yes Anticipated discharge: Home Within: within 24 hours
[2018-12-10] MEDS: ATORVASTATIN CALCIUM 20 MG TABLET PO SCH (21:17)
[2018-12-10] MEDS ORDERED: CARVEDILOL 3.125 MG TABLET PO ONE (23:59)
[2018-12-11] MEDS: PANTOPRAZOLE SODIUM 20 MG TABLET.DR PO SCH (05:03)
[2018-12-11 06:38] LABS: HEMATOCRIT 27.4 % (37.9-51.0); HEMOGLOBIN 8.5 g/dL (13.5-17.0); MEAN CORPUSCULAR HEMOGLOBIN 20.3 pg (27.0-33.4); MEAN CORPUSCULAR HGB CONC 31.1 g/dL (32.0-36.0); MEAN CORPUSCULAR VOLUME 65 fl (80-97); PLATELET COUNT 254 10^3/uL (150-450); RED BLOOD COUNT 4.18 10^6/uL (4.35-5.55); RED CELL DISTRIBUTION WIDTH 21.4 % (11.5-14.0); WHITE BLOOD COUNT 6.8 10^3/uL (4.0-10.5)
[2018-12-11 07:06] LABS: ANION GAP 10 (5-19); BLOOD UREA NITROGEN 36 mg/dL (7-20); CALCIUM 7.4 mg/dL (8.4-10.2); CARBON DIOXIDE 28 mmol/L (22-30); CHLORIDE 96 mmol/L (98-107); GLUCOSE 174 mg/dL (75-110); POTASSIUM 4.5 mmol/L (3.6-5.0); SODIUM 134.3 mmol/L (137-145)
[2018-12-11 08:16] VITALS: BP 108/72
[2018-12-11] MEDS: FAMOTIDINE 20 MG TABLET PO SCH (09:46)
[2018-12-11] MEDS: SERTRALINE HCL 50 MG TABLET PO SCH (09:46)
[2018-12-11] MEDS: ASPIRIN 81 MG TABLET, ENT COATED PO SCH (09:46)
[2018-12-11] MEDS: DULOXETINE HCL 30 MG CAPSULE.DR PO SCH (09:46)
[2018-12-11] MEDS: INSULIN LISPRO 100 UNIT/ML 3 ML VIAL SUBCUT SCH ×2 (09:46→12:25)
[2018-12-11] MEDS: BUSPIRONE HCL 10 MG TABLET PO SCH (09:47)
[2018-12-11] MEDS: ENOXAPARIN SODIUM INJ 30 MG/0.3 ML DISP.SYRIN SUBCUT SCH (09:48)
[2018-12-11] MEDS: TORSEMIDE 20 MG TABLET PO SCH (09:50)
[2018-12-11] MEDS ORDERED: CARVEDILOL 3.125 MG TABLET PO SCH (10:00)
[2018-12-11] MEDS ORDERED: NICOTINE 21 MG/24 HR PATCH.TD24 TD SCH (10:00)
--- NOTE | 2018-12-11 10:37 | EKG REPORT ---
SEVERITY:- ABNORMAL ECG - A-V DUAL-PACED RHYTHM WITH SOME INHIBITION : Confirmed by: Jeison Reid 11-Dec-2018 10:36:21
--- NOTE | 2018-12-11 10:37 | EKG REPORT ---
SEVERITY:- ABNORMAL ECG - ATRIAL-VENTRICULAR DUAL-PACED COMPLEXES : Confirmed by: Jeison Reid 11-Dec-2018 10:36:15
--- NOTE | 2018-12-12 22:36 | PDOC DISCHARGE SUMMARY ---
General - Admit/Disc Date/PCP Admission Date/Primary Care Provider: 12/09/18 14:52 JAVAD MART Discharge Date: 12/11/18 - Discharge Diagnosis (1) Syncope and collapse Is this a current diagnosis for this admission?: Yes Summary: Unclear etiology at this time CT head negative (-) CTA head was benign though could not exclude occlusion of the left distal vertibral artery; recommend routine monitoring. Carotid doppler was negative for hemodynamically significant stenosis. Echocardiogram report is pending at time of dictation. Unlikely to have been a hypoglycemic event given that the patient does not take diabetic medications. Not a candidate for MRI as he has a Pacemaker/AICD; Rt sided weakness has resolved. Possible TIA as precipitating event. TSH is nml Random and AM cortisol levels are nml. Orthostatic vital signs are negative. Patient is now independently ambulatory without symptoms. (2) CAD (coronary artery disease) Is this a current diagnosis for this admission?: Yes Summary: History of CAD Recommend he continue home dose ASA, atorvastatin, Cardiac diet and to STOP smoking. (3) CHF (congestive heart failure) Is this a current diagnosis for this admission?: Yes Summary: history of CHF - 3 vessel CABG, CAD, ND x 2-3, now with chronic congestive heart failure. Appears compensated and without exacerbation at this time. proBNP is elevated to 7k Echocardiogram was updated; at time of dictation the report is not yet av ailable. Patient was admitted to [facility] for telemetry monitoring. Attempted tp interrogate pacemaker; unfortunately patient does not know type of device and does not have card/records for verification. No abnormal findings noted while on telemetry; patient can't recall recent AICD fires. Continue home dose torsemide and have started carvedilol 3.15 mg twice daily. ACEI held secondary to renal function. Recommend patient establish with counter intelligence agent for continued care post discharge. Home health nursing is ordered for disease and medication education and management. (4) Hyperglycemia Is this a current diagnosis for this admission?: Yes Summary: A1C 11.7% Stemming from noncompliance; patient admits he does not check BG at home The director of dementia operations and registered pharmacist were consulted. HE was placed on Lantus 10 units nightly and metformin at discharge. Patient requested home health nursing to assist with education and medication management. (5) Hyperkalemia Is this a current diagnosis for this admission?: Yes Summary: Resolved. likely secondary to kidney disease treated with insulin, kayexalate and calcium gluconate (6) Weakness Is this a current diagnosis for this admission?: Yes Summary: Resolved; returned to baseline per patient. Evaluation and management as above. Independently ambulated to the length of the floor today without difficulty. (7) Arthritis Is this a current diagnosis for this admission?: Yes Summary: PMH arthritis in the hips Continue home dose percocet for pain - Additional Information Resuscitation Status: Full Code Discharge Diet: Cardiac, Diabetic Discharge Activity: Activity As Tolerated, Balance Activity w/Rest, Weigh Daily Prescriptions: Aspirin [Ecotrin 81 mg EC Tablet] 81 mg PO DAILY #90 tabec Atorvastatin Calcium [Lipitor 20 mg Tablet] 20 mg PO QHS #30 tablet Blood-Glucose Meter [Blood Glucose Meter] 1 unit MC DAILY PRN #1 unit PRN Reason: Carvedilol [Coreg 3.125 mg Tablet] 3.125 mg PO Q12 #60 tablet Lantus Pen 10 units SQ QHS #1 Metformin HCl 500 mg PO BID #60 tablet Nicotine [Nicoderm 21 mg/24 Hr Transderm Patch] 1 each TD DAILY #30 patch.td24 Pen Needle, Diabetic [Insulin Pen Needle] 1 each MC DAILY #30 dis.needle Home Medications: Buspirone HCl [Buspar 10 mg Tablet] 10 mg PO Q12 12/09/18 Duloxetine HCl [Cymbalta 30 mg Capsule.dr] 60 mg PO DAILY 12/09/18 Omeprazole 20 mg PO DAILY 12/09/18 Oxycodone HCl/Acetaminophen [Oxycodone-Acetaminophen 10-325] 1 each PO Q8HP PRN 12/09/18 Potassium Chloride [Klor-Con 10 Meq Capsule ER] 10 meq PO DAILY 12/09/18 Sertraline HCl [Zoloft 50 mg Tablet] 50 mg PO DAILY 12/09/18 Torsemide [Demadex 20 mg Tablet] 40 mg PO Q12 12/09/18 Acetaminophen [Tylenol 325 mg Tablet] 650 mg PO Q4HP PRN tablet 12/11/18 Aspirin [Ecotrin 81 mg EC Tablet] 81 mg PO DAILY #90 tabec 12/11/18 Atorvastatin Calcium [Lipitor 20 mg Tablet] 20 mg PO QHS #30 tablet 12/11/18 Blood-Glucose Meter [Blood Glucose Meter] 1 unit MC DAILY PRN #1 unit 12/11/18 Carvedilol [Coreg 3.125 mg Tablet] 3.125 mg PO Q12 #60 tablet 12/11/18 Lantus Pen 10 units SQ QHS #1 12/11/18 Metformin HCl 500 mg PO BID #60 tablet 12/11/18 Nicotine [Nicoderm 21 mg/24 Hr Transderm Patch] 1 each TD DAILY #30 patch.td24 12/11/18 Pen Needle, Diabetic [Insulin Pen Needle] 1 each MC DAILY #30 dis.needle History of Present Illness History of Present Illness: Per H&P by [facility] NENA Hall: Patient is a 58-year-old male with a PMH of CVA, ND x 2-3 with stents (unsure how many), 3 vessel CABG, pacemaker, CAD, CKD, HTN, TJ, PUD. He presents to the emergency department after a syncopal episode. He was getting up to go to the bathroom. He states the next thing he knew he was on the floor. He is unsure as to whether or not he hit his head. States his aunt called EMS. Upon arrival to the ED, head CT was negative. EKG shows paced rhythm. Laboratory studies show HYPOnatremia (Na 129), hyperkalemia (K 6.2), hyperglycemia (BG 433), and CKD III. The patient admits that he is noncompliant with his medical treatment. Does not check is BG at home. Was supposed to follow up with window installation subcontractor regarding CKD but never did. Has not seen a counter intelligence agent in quite some time. The patient endorses mild R sided weakness. Is unable to tell me if he has residual deficits from his previous stroke. Denies parasthesia or pain. Endorses feeling lightheaded and dizzy. Denies visual deficits. On exam, there is mild R tongue deviation. Difficult to discern R sided weakness. +systolic murmur. Pulses are palpable in all extremities. Mild peripheral edema in lower extremities. Abdomen is S/NT/ND. Plan to admit to hospitalist service for syncope workup. Physical Exam Vital Signs: Temp Pulse Resp BP Pulse Ox 97.3 F 70 18 108/72 98 12/11/18 07:33 12/11/18 12:00 12/11/18 12:00 12/11/18 12:00 12/11/18 12:44 Intake & Output 12/10/18 12/11/18 12/12/18 06:59 06:59 06:59 Intake Total 340 1110 Balance 340 1110 Weight 84.2 kg 82.8 kg General appearance: PRESENT: no acute distress, morbidly obese, well-developed, well-nourished Head exam: PRESENT: atraumatic, normocephalic Eye exam: PRESENT: conjunctiva pink, EOMI, PERRLA. ABSENT: scleral icterus Ear exam: PRESENT: normal external ear exam Mouth exam: PRESENT: moist, tongue midline Teeth exam: PRESENT: poor dentation Neck exam: ABSENT: carotid bruit, JVD, lymphadenopathy, thyromegaly Respiratory exam: PRESENT: clear to auscultation neena. ABSENT: rales, rhonchi, wheezes Cardiovascular exam: PRESENT: RRR. ABSENT: diastolic murmur, rubs, systolic murmur Pulses: PRESENT: normal dorsalis pedis pul Vascular exam: PRESENT: normal capillary refill GI/Abdominal exam: PRESENT: normal bowel sounds, soft. ABSENT: distended, guarding, mass, organolmegaly, rebound, tenderness Rectal exam: PRESENT: deferred Extremities exam: PRESENT: full ROM. ABSENT: calf tenderness, clubbing, pedal edema Neurological exam: PRESENT: alert, awake, oriented to person, oriented to place, oriented to time, oriented to situation, CN II-XII grossly intact. ABSENT: motor sensory deficit Psychiatric exam: PRESENT: appropriate affect, normal mood. ABSENT: homicidal ideation, suicidal ideation Skin exam: PRESENT: dry, intact, warm. ABSENT: cyanosis, rash Results Laboratory Results: 12/11/18 06:05 12/11/18 06:05 12/11/18 12/11/18 06:05 06:05 WBC 6.8 RBC 4.18 L Hgb 8.5 L Hct 27.4 L MCV 65 L MCH 20.3 L MCHC 31.1 L RDW 21.4 H Plt Count 254 Sodium 134.3 L Potassium 4.5 Chloride 96 L Carbon Dioxide 28 Anion Gap 10 BUN 36 H Creatinine 1.78 H Est GFR ( Amer) 48 L Est GFR (Non-Af Amer) 40 L Glucose 174 H Calcium 7.4 L 12/09/18 12/09/18 12/09/18 12:33 12:33 17:25 Creatine Kinase 54 L 69 CK-MB (CK-2) 1.54 Troponin I 0.020 NT-Pro-B Natriuret Pep 12/09/18 12/09/18 12/09/18 17:25 21:30 21:30 Creatine Kinase 72 CK-MB (CK-2) 1.72 1.49 Troponin I 0.035 0.027 NT-Pro-B Natriuret Pep 12/10/18 12/10/18 04:30 04:30 Creatine Kinase 77 CK-MB (CK-2) 1.32 Troponin I 0.023 NT-Pro-B Natriuret Pep 7840 H Impressions: Head CT 12/09/18 13:39 IMPRESSION: NORMAL BRAIN CT WITHOUT CONTRAST. EVIDENCE OF ACUTE STROKE: NO. Head CTA 12/09/18 16:22 IMPRESSION: No evidence of stenosis or aneurysm of the [place]. Cannot exclude occlusion of the distal left cerebral artery. Carotid Doppler Study 12/09/18 16:24 IMPRESSION: NO HEMODYNAMICALLY SIGNIFICANT STENOSIS. Qualifiers - * PATIENT BEING DISCHARGED WITH ANY OF THE FOLLOWING DIAGNOSIS: No Acute Heart Failure Is this a Heart Failure Patient?: No Plan Discharge Plan: Follow-up with primary care provider within 1 week. Eat a low-sodium diet. Weigh daily and report any weight gain >2 lbs to PCP. Follow up with Dr. Perez within 4-6 weeks. Consider following up with Dr. Sesay, nephrology Stop smoking. Return to the emergency department as needed for concerning symptoms. Time Spent: Greater than 30 Minutes
--- NOTE | 2018-12-15 13:08 | XCELERA REPORT ---
[address] [address] Transthoracic Echocardiogram Report Name: BERKOWITZPAL KHOURY JR, JR Age: 58 yrs Gender: Male : 1960 Patient Status: Inpatient Patient Location: [address] [place], [place] [address] Study Date: 12/10/2018 06:28 PM Height: 69 in Weight: 185 lb BSA: 2.0 m2 Procedure: A two-dimensional transthoracic echocardiogram with color flow and Doppler was performed. Study Quality: Poor. Images were not obtained from all of the standard acoustic windows due to the limited scope of the study. Reason For Study: CHF, syncope History: CHF / Syncope. Ordering Physician: CRISTÓBAL NYE Performed By: Elaina Carbajal Interpretation Summary The left ventricle is mildly dilated. There is normal left ventricular wall thickness. No True apical 2 chamber views obtained.Hence cannot comment on the apical anterior , the basal anterior, the basal inferior and apical inferior lester.LV apex is akinetic,The mid anterior , the mid inferior and the rest of the LV lester are moderately hypokinetic.LVEF is moderately ly reduced at 35% to 40%. There is no thrombus. Cannot assess for ASD,VSD or PFO. The right ventricle is not well visualized secondary to technical limitations There is a pacemaker lead in the right ventricle. Right atrium not well visualized secondary to technical limitations LA is mild to moderately dilated. There is no mitral valve stenosis. There is a trace amount of mitral regurgitation There is no aortic valve stenosis There is no aortic valvular vegetation. There is no LVOT obstruction. No aortic regurgitation is present. There is no tricuspid stenosis. There is a mild to moderate amount of tricuspid regurgitation There is mild pulmonary hypertension by echo There is no pulmonic valvular stenosis. There is a trace amount of pulmonic regurgitation There is no pericardial effusion. MMode/2D Measurements & Calculations RVDd: 3.1 cm LVIDd: 5.7 cm FS: 19.0 % Ao root diam: 2.8 cm IVSd: 1.0 cm LVIDs: 4.6 cm EDV(Teich): 162.1 ml Ao root area: 6.0 cm2 LVPWd: 1.1 cm ESV(Teich): 99.4 ml LA dimension: 4.5 cm EF(Teich): 38.7 % Doppler Measurements & Calculations MV E max alejandro: MV P1/2t max alejandro: Ao V2 max: LV V1 max P.1 cm/sec 132.6 cm/sec 114.4 cm/sec 2.6 mmHg MV A max alejandro: MV P1/2t: 61.6 msec Ao max PG: LV V1 max: 38.0 cm/sec MVA(P1/2t): 3.6 cm2 5.2 mmHg 80.9 cm/sec MV E/A: 2.8 MV dec slope: 631.0 cm/sec2 MV dec time: 0.15 sec PA V2 max: PI end-d alejandro: TR max alejandro: MV P1/2t-pr_phl: 78.5 cm/sec 107.6 cm/sec 302.7 cm/sec 61.6 msec PA max P.5 mmHg TR max P.6 mmHg Left Ventricle The left ventricle is mildly dilated. There is normal left ventricular wall thickness. No True apical 2 chamber views obtained.Hence cannot comment on the apical anterior , the basal anterior, the basal inferior and apical inferior lester.LV apex is akinetic,The mid anterior , the mid inferior and the rest of the LV lester are moderately hypokinetic.LVEF is moderately ly reduced at 35% to 40%. There is no thrombus. Cannot assess for ASD,VSD or PFO. Right Ventricle The right ventricle is not well visualized secondary to technical limitations. There is a pacemaker lead in the right ventricle. Atria Right atrium not well visualized secondary to technical limitations. LA is mild to moderately dilated. Mitral Valve There is no evidence of mitral valve prolapse. There is no vegetation seen on the mitral valve. There is no mitral valve stenosis. There is a trace amount of mitral regurgitation. Aortic Valve There is no aortic valvular vegetation. There is no aortic valve stenosis. There is no LVOT obstruction. No aortic regurgitation is present. Tricuspid Valve There is no tricuspid stenosis. There is a mild to moderate amount of tricuspid regurgitation. There is mild pulmonary hypertension by echo. RVSP is 47 mm of Hg with RA mean of 10. Pulmonic Valve There is no pulmonic valvular stenosis. There is a trace amount of pulmonic regurgitation. Great Vessels The aortic root is not well visualized. The inferior vena cava was not visualized. Effusions There is no pericardial effusion. : CRISTÓBAL NYE > Neva Reynolds
== END 2018-12-11 16:50 | disposition home or self-care (01) | DRG 312 ==
LOC: ER 12:17 → EH 14:52 → 3W 17:52
PROVIDERS: ADMIT Internal Medicine; ATTEND Internal Medicine
DX: R55 Syncope and collapse (principal); E87.1 Hypo-osmolality and hyponatremia; I13.0 Hypertensive heart and chronic kidney disease with heart failure and stage 1 through stage 4 chronic kidney disease, or unspecified chronic kidney disease; N18.3 Chronic kidney disease, stage 3 (moderate); I50.9 Heart failure, unspecified; E11.22 Type 2 diabetes mellitus with diabetic chronic kidney disease; E87.5 Hyperkalemia; I25.10 Atherosclerotic heart disease of native coronary artery without angina pectoris; E11.65 Type 2 diabetes mellitus with hyperglycemia; M19.90 Unspecified osteoarthritis, unspecified site; F41.9 Anxiety disorder, unspecified; F17.210 Nicotine dependence, cigarettes, uncomplicated; I25.2 Old myocardial infarction; Z86.73 Personal history of transient ischemic attack (TIA), and cerebral infarction without residual deficits; Z91.14 Patient's other noncompliance with medication regimen; Z95.0 Presence of cardiac pacemaker; Z79.01 Long term (current) use of anticoagulants; Z79.84 Long term (current) use of oral hypoglycemic drugs; Z79.82 Long term (current) use of aspirin; Z79.899 Other long term (current) drug therapy
CPT/HCPCS: 36415; 70450; 70496; 80048; 80053; 80061; 81001; 82533; 82550; 82553; 82962; 83036; 83735; 83880; 84100; 84443; 84484; 85025; 85027; 93005; 93010; 93306; 93880; 96374; 99285; J0610; J1650; J1815; J3490